=== PATIENT | female | born 1940 | race African-American/Black ===

== ENCOUNTER 2025-01-26 06:31 | Emergency (ER) | payer MEDICARE, OTHER ==
[~2025-01-26] VITALS: Ht 167.6 cm; Wt 66.0 kg
[2025-01-26 06:32] VITALS: O2SAT 98
[2025-01-26 07:15] LABS: BASOPHILS % 0.5 % (0.0-2.0); EOSINOPHILS % 1.9 % (0.0-5.0); HEMATOCRIT. 34.8 % (36.0-48.0); HEMOGLOBIN. 11.3 g/dL (12.0-16.0); LYMPHOCYTES % 16.3 % (20.0-50.0); MEAN CORPUSCULAR HGB CONC 32.4 g/dL (31.0-37.0); MEAN CORPUSCULAR VOLUME 89.7 fL (81.0-99.0); MEAN PLATELET VOLUME 9.6 fl (7.4-10.4); MONOCYTES % 7.3 % (2.0-8.0); PLATELET 288 x1000/uL (130-400); RED BLOOD CELL COUNT 3.88 mill/uL (4.2-5.4); RED CELL DISTRIBUTION WIDTH 15.4 % (11.6-14.6); WHITE BLOOD COUNT 9.5 x1000/uL (4.5-11.0)
[2025-01-26 07:29] LABS: CHLORIDE 101 mEq/L (98-107); POTASSIUM 4.6 mEq/L (3.5-5.1); SODIUM 136 mEq/L (136-145)
[2025-01-26 07:30] LABS: CARBON DIOXIDE 31 mEq/L (21-32)
[2025-01-26 07:31] LABS: CALCIUM 9.3 mg/dL (8.7-10.4)
[2025-01-26 07:35] LABS: CREATININE 0.6 mg/dL (0.6-1.0); GLUCOSE 280 mg/dL (70-105)
[2025-01-26 07:36] LABS: TROPONIN I HIGH SENSITIVITY 33 ng/L (3.0-34); UREA NITROGEN BLOOD 27 mg/dL (9-23)
[2025-01-26 09:42] LABS: TROPONIN I HIGH SENSITIVITY 33 ng/L (3.0-34)
[2025-01-26 11:23] VITALS: BP 108/56; PULSE 56; RESP 14; TEMP 37.1; O2SAT 98
[2025-01-26] MEDS ORDERED: LIDOCAINE HCL/EPINEPHRINE 1%-EPI 1:100,000 20ML VIAL INFIL ONE (11:45)
== END 2025-01-26 12:13 | disposition home or self-care (01) ==
LOC: ER 06:31
DX: S01.01XA Laceration without foreign body of scalp, initial encounter (principal); E11.9 Type 2 diabetes mellitus without complications; E78.00 Pure hypercholesterolemia, unspecified; I10 Essential (primary) hypertension; N28.9 Disorder of kidney and ureter, unspecified; R51.9 Headache, unspecified; W06.XXXA Fall from bed, initial encounter; Y93.89 Activity, other specified; Y92.89 Other specified places as the place of occurrence of the external cause; Y99.8 Other external cause status
CPT/HCPCS: 99285; 70450; 71045; 80048; 83880; 85025; 84484; 36415; 12001; 93005; J2004